=== PATIENT | female | born 1950 | race Two or more races ===

== ENCOUNTER 2017-05-04 00:27 | Emergency (ER) | payer OTHER, MEDICAID ==
[~2017-05-04] VITALS: Ht 157.5 cm; Wt 51.2 kg
[2017-05-04 00:40] VITALS: Ht 157.5 cm; Wt 51.2 kg
[2017-05-04 01:36] LABS: PLATELET COUNT 218 x10^3mcL (130-400); RED CELL DISTRIBUTION WIDTH 12.7 % (11.5-14.5)
[2017-05-04 01:38] LABS: BASOPHIL % 3.5 % (0-2)
[2017-05-04 02:20] LABS: CALCIUM 8.8 mg/dL (8.5-10.1); CARBON DIOXIDE 31.1 mmol/L (21-32); POTASSIUM SERUM 3.2 mmol/L (3.5-5.1)
[2017-05-04 02:25] LABS: ALBUMIN 3.7 g/dL (3.4-5.0); BILIRUBIN TOTAL 0.28 mg/dL (0.20-1.00); TOTAL PROTEIN, SERUM 7.1 g/dL (6.4-8.2)
[2017-05-04 02:55] LABS: microscopic required? YES; urine erythrocyte TRACE (NEGATIVE)
[2017-05-04] MEDS ORDERED: PROVENTIL0.09 MG/A1 (03:11)
[2017-05-04 05:09] VITALS: BP 111/71
== END 2017-05-04 05:09 | disposition home or self-care (01) ==
LOC: ED 00:27
PROVIDERS: Emergency Medicine
DX: K21.9 Gastro-esophageal reflux disease without esophagitis (principal); N39.0 Urinary tract infection, site not specified; E86.0 Dehydration; E87.6 Hypokalemia; E03.9 Hypothyroidism, unspecified; Z88.6 Allergy status to analgesic agent; Z88.5 Allergy status to narcotic agent
CPT/HCPCS: 83880; J0696; J2405; J2765; J7030